=== PATIENT | female | born 1960 | race Caucasian/White ===

== ENCOUNTER 2019-01-16 13:39 | Emergency (ER) | payer OTHER ==
--- NOTE | 2019-01-16 15:14 | UC ---
Lower Extremity/Ankle HPI - HPI Summary HPI Summary: The patient is a 58-year-old female that injured her left foot today as she was going downstairs. She is complaining of left midfoot pain and swelling. She states that for the past month or 2 she has had pain at the posterior arch and heel. On triage she hasn't noticed that have elevated blood pressure upon questioning she states she had been diagnosed with hypertension but is not seen a doctor for over 10 years. She states she used to take Zestril. - History of Current Complaint Chief Complaint: UCLowerExtremity Stated Complaint: FOOT INJURY Time Seen by Provider: 01/16/19 15:08 Hx Obtained From: Patient Onset/Duration: Sudden Onset, Lasting Hours Severity Initially: Moderate Severity Currently: Mild Pain Intensity: 1 Pain Scale Used: 0-10 Numeric Aggravating Factor(s): Standing, Ambulation Alleviating Factor(s): Rest Able to Bear Weight: Yes Feet (Multiple View): 1 - pain and swelling - Allergies/Home Medications Allergies/Adverse Reactions: Allergies Allergy/AdvReac Type Severity Reaction Status Date / Time No Known Allergies Allergy Verified 01/16/19 14:13 Home Medications: Home Medications NK [No Home Medications Reported] 01/16/19 [History Confirmed 01/16/19] PMH/Surg Hx/FS Hx/Imm Hx Previously Healthy: Yes Cardiovascular History: Hypertension - on no meds - Surgical History Surgical History: Yes - Family History Known Family History: Positive: Hypertension, Diabetes - Social History Alcohol Use: Occasionally Substance Use Type: None Smoking Status (MU): Never Smoked Tobacco Review of Systems All Other Systems Reviewed And Are Negative: Yes Constitutional: Positive: Negative Skin: Positive: Negative Eyes: Positive: Negative ENT: Positive: Negative Respiratory: Positive: Negative. Negative: Shortness Of Breath Cardiovascular: Positive: Negative. Negative: Chest Pain Gastrointestinal: Positive: Negative Genitourinary: Positive: Negative Motor: Positive: Negative Neurovascular: Positive: Negative Musculoskeletal: Positive: Edema - chronic LE edema Neurological: Positive: Negative. Negative: Headache Psychological: Positive: Negative Physical Exam Triage Information Reviewed: Yes Appearance: Well-Appearing, No Pain Distress, Well-Nourished Vital Signs: Initial Vital Signs Temp 98.4 F 01/16/19 14:10 Pulse 90 01/16/19 14:10 Resp 19 01/16/19 14:10 BP 235/150 01/16/19 14:10 Pulse Ox 99 01/16/19 14:10 Vital Signs Reviewed: Yes Eyes: Positive: Conjunctiva Clear, Other: - EOMI/PERRL ENT: Positive: Hearing grossly normal. Negative: Nasal congestion, Nasal drainage, Tonsillar swelling, Tonsillar exudate, Sinus tenderness, Uvula midline Neck: Positive: Supple, Nontender, No Lymphadenopathy Respiratory: Positive: Lungs clear, Normal breath sounds, No respiratory distress, No accessory muscle use Cardiovascular: Positive: RRR, No Murmur Musculoskeletal: Positive: ROM Intact, Edema @ - Bilateral LE,at baseline per patient Neurological: Positive: Alert Psychological: Positive: Normal Response To Family, Age Appropriate Behavior Skin Exam: Normal Diagnostics - Radiology No standard instances Radiology Interpretation Completed By: Radiologist Summary of Radiographic Findings: no fx Lower Extremity Course/Dx - Differential Dx/Diagnosis Provider Diagnosis: Sprain of left foot, Hypertension Discharge ED - Sign-Out/Discharge Documenting (check all that apply): Patient Departure All imaging exams completed and their final reports reviewed: Yes - Discharge Plan Condition: Stable Disposition: HOME Patient Education Materials: Foot Sprain (ED), Hypertension (ED) Forms: *Work Release Referrals: [facility] [Outside] - 3 Days Bria Diaz MD [Medical Doctor] - 7 Days (if not better) Additional Instructions: elevate post op shoe tylenol your BP was high here 235/150 down to 200/100 get [facility] to [facility] available appt no fracture noted - Billing Disposition and Condition Condition: STABLE Disposition: Home
[2019-01-16 15:48] VITALS: BP 200/100
--- NOTE | 2019-01-18 14:13 | UC ---
- Progress Note Progress Note: PROGRESS NOTE: LAB RESULTS:negative urine culture MDM:patient with abnormal UA. Culture comes back negative. No change in treatment. Dustin Farah MD Course/Dx - Diagnoses Provider Diagnoses: Sprain of left foot, Hypertension Discharge ED - Sign-Out/Discharge Documenting (check all that apply): Post-Discharge Follow Up All imaging exams completed and their final reports reviewed: Yes - Discharge Plan Condition: Stable Disposition: HOME Patient Education Materials: Foot Sprain (ED), Hypertension (ED) Forms: *Work Release Referrals: [facility] [Outside] - 3 Days Bria Diaz MD [Medical Doctor] - 7 Days (if not better) Additional Instructions: elevate post op shoe tylenol your BP was high here 235/150 down to 200/100 get in to [facility] available appt no fracture noted - Billing Disposition and Condition Condition: STABLE Disposition: Home
== END 2019-01-16 16:15 | disposition home or self-care (01) ==
LOC: UCEAST 13:39
DX: S93.602A Unspecified sprain of left foot, initial encounter (principal); I10 Essential (primary) hypertension; X58.XXXA Exposure to other specified factors, initial encounter; Y92.9 Unspecified place or not applicable
CPT/HCPCS: 81003; 87086